=== PATIENT | female | born 1985 | race Caucasian/White ===

== ENCOUNTER 2020-10-04 10:01 | Inpatient (IN) ==
[2020-10-04] MEDS ORDERED: Naloxone 0.4 MG/ML INJ IVP PRN ×2 (10:14→16:15)
[2020-10-04] MEDS ORDERED: Famotidine 20 MG/2 ML VIAL IVP PRN (10:14)
[2020-10-04] MEDS ORDERED: Metoclopramide 10 MG/2 ML VIAL IVP PRN ×2 (10:14→16:15)
[2020-10-04] MEDS ORDERED: Ringers Solution, Lactated 1,000 ML IVC SCH ×2 (10:15→16:15)
[2020-10-04] MEDS ORDERED: CeFAZolin 2,000 MG/50 ML BAG IVPB ONE (11:17)
[2020-10-04] MEDS ORDERED: Ondansetron 4 MG/2 ML VIAL IVP PRN ×2 (11:20→16:15)
[2020-10-04] MEDS ORDERED: *HR* OxyCODONE Immed Rel 5 MG TABLET PO PRN (11:20)
[2020-10-04 11:31] LABS: Basophils % 0.2 %; Eosinophils # 0.1 K/mcL (0.0-0.6); Eosinophils % 0.6 %; Hematocrit 36.2 % (35.3-44.9); Hemoglobin 11.7 g/dL (11.5-15.4); Immature Granulocytes % 0.4 % (0-4); Lymphocytes # 1.9 K/mcL (0.6-4.6); Lymphocytes % 19.6 %; Mean Corpuscular HGB Conc 32.3 g/dL (31.6-35.5); Mean Corpuscular Hemoglobin 27.1 pg (28.0-33.3); Mean Corpuscular Volume 83.8 fL (83.0-100.0); Mean Platelet Volume 10.4 fL (9.4-12.4); Monocytes # 0.5 K/mcL (0.0-1.3); Monocytes % 5.6 %; Neutrophils # 6.9 K/mcL (1.6-8.9); Platelet Count 264 K/mcL (140-400); Red Blood Count 4.32 M/mcL (3.82-4.97); Segmented Neutrophils % 73.6 %; White Blood Count 9.4 K/mcL (4.3-11.1)
[2020-10-04 11:36] LABS: Amphetamine Screen,Urine Negative ng/mL (Cutoff=1000); Barbiturate Screen,Urine Negative ng/mL (Cutoff=200); Benzodiazepines Screen,Urine Negative ng/mL (Cutoff=200); Cannabinoid Screen,Urine Negative ng/mL (Cutoff = 50); Cocaine Screen,Urine Negative ng/mL (Cutoff= 300); Opiate Screen,Urine Negative ng/mL (Cutoff=300); Phencyclidine Screen,Urine Negative ng/mL (Cutoff=25)
[2020-10-04 12:17] LABS: Adenovirus Not Detected (Not Detect); Bordetella Pertussis Not Detected (Not Detect); Chlamydophila pneumoniae Not Detected (Not Detect); Coronavirus 229E Not Detected (Not Detect); Coronavirus HKU1 Not Detected (Not Detect); Coronavirus NL63 Not Detected (Not Detect); Coronavirus OC43 Not Detected (Not Detect); Human Metapneumovirus Not Detected (Not Detect); Human Rhinovirus/Enterovirus Not Detected (Not Detect); Influenza A Subtype 2009 H1 Not Detected (Not Detect); Influenza B Not Detected (Not Detect); Mycoplasma pneumoniae Not Detected (Not Detect); Parainfluenza Virus 1 Not Detected (Not Detect); Parainfluenza Virus 2 Not Detected (Not Detect); Parainfluenza Virus 3 Not Detected (Not Detect); Parainfluenza Virus 4 Not Detected (Not Detect); Respiratory Syncytial Virus Not Detected (Not Detect); SARS-CoV-2 Not Detected (Not Detect)
[2020-10-04] MEDS ORDERED: Ondansetron 4 MG/2 ML VIAL ONE (12:27)
[2020-10-04] MEDS ORDERED: *HR* FentaNYL (PF) 100 MCG/2 ML VIAL ONE (12:29)
[2020-10-04] MEDS ORDERED: *HR* Morphine Sulfate/PF 10 MG/10 ML AMPUL ONE (12:29)
[2020-10-04] MEDS ORDERED: Acetaminophen IV 1,000 MG/100 ML BAG IVPB ONE (13:13)
[2020-10-04] MEDS ORDERED: Ketorolac 30 MG/ML VIAL ONE (13:34)
[2020-10-04] MEDS ORDERED: Rho Immune Globulin 1,500 UNIT SYRINGE IM ONE (16:15)
[2020-10-04] MEDS ORDERED: Simethicone 80 MG TAB.CHEW PO PRN (16:15)
[2020-10-04] MEDS ORDERED: Sennosides 8.6 MG TABLET PO PRN (16:15)
[2020-10-04] MEDS ORDERED: Oxytocin 20 units/ LR 1000 mL 20 UNIT/1,000 ML BAG IVC SCH ×2 (16:15)
[2020-10-04] MEDS: Ibuprofen 600 MG TABLET PO PRN (19:01)
[2020-10-05] MEDS: *HR* OxyCODONE/APAP 5/325 TABLET PO PRN ×2 (00:48→15:00)
[2020-10-05] MEDS: Ibuprofen 600 MG TABLET PO PRN ×4 (00:48→18:10)
[2020-10-05 06:59] LABS: Basophils % 0.3 %; Eosinophils # 0.1 K/mcL (0.0-0.6); Hematocrit 30.9 % (35.3-44.9); Hemoglobin 9.7 g/dL (11.5-15.4); Immature Granulocytes % 0.4 % (0-4); Lymphocytes # 2.6 K/mcL (0.6-4.6); Lymphocytes % 19.3 %; Mean Corpuscular HGB Conc 31.4 g/dL (31.6-35.5); Mean Corpuscular Hemoglobin 26.2 pg (28.0-33.3); Mean Corpuscular Volume 83.5 fL (83.0-100.0); Mean Platelet Volume 10.5 fL (9.4-12.4); Monocytes # 1.1 K/mcL (0.0-1.3); Monocytes % 7.7 %; Neutrophils # 9.7 K/mcL (1.6-8.9); Platelet Count 235 K/mcL (140-400); Segmented Neutrophils % 71.3 %; White Blood Count 13.6 K/mcL (4.3-11.1)
[2020-10-05] MEDS: Prenatal Vit/FA 1 EACH TABLET PO SCH (08:35)
[2020-10-06] MEDS: Ibuprofen 600 MG TABLET PO PRN (02:14)
[2020-10-06] MEDS: *HR* OxyCODONE/APAP 5/325 TABLET PO PRN (07:19)
[2020-10-06 07:55] VITALS: BP 125/76
[2020-10-06] MEDS: Prenatal Vit/FA 1 EACH TABLET PO SCH (08:29)
== END 2020-10-06 13:54 | disposition home or self-care (01) | DRG 788 ==
LOC: 1NENULAB 10:01 → 1NENUOBS 15:48
PROVIDERS: ADMIT Obstetrics & Gynecology; ATTEND Obstetrics & Gynecology